=== PATIENT | female | born 1980 | race Caucasian/White ===

== ENCOUNTER 2018-04-05 12:51 | Emergency (ER) | payer BC ==
[2018-04-05] MEDS ORDERED: Metoclopramide IV* 5 MG/ML 2 ML VIAL IV ONE (14:22)
[2018-04-05] MEDS ORDERED: NS 0.9% 1000 ML* 1,000 ML IV ONE (14:22)
[2018-04-05] MEDS ORDERED: Morphine INJ* 10 MG/ML 1 ML CARPUJECT IV ONE (14:22)
[2018-04-05] MEDS ORDERED: Morphine VIAL* 10 MG/ML 1 ML VIAL ONE (14:31)
--- NOTE | 2018-04-05 14:31 | ED ---
Abdominal Pain/Female - HPI Summary HPI Summary: This is orilatonia Quintana Valdo documenting for attending Dr. Alcon Boothe MD. The patient is a 37 y/o F presenting to [facility] c/o intermittent aching RLQ pain starting this morning. The pain started in her right lower back and has moved to the RLQ. She went to work where the pain started to worsen, causing her to lie on the floor because of the pain, which she rated 9/10 in severity. She treated the pain with Advil to some relief. She was driven to the hospital by a friend, and the pain returned, so she took an additional Advil to decreased the pain to 2/10 in severity. She additionally c/o decreased appetite , chills, and diaphoresis. She denies nausea and vomiting. She last had breakfast at 09:00. LNMP: 03/17/18. FHx of kdieny stones in father but she has never had them. - History of Current Complaint Chief Complaint: EDFlankPain Stated Complaint: RT FLANK PAIN Time Seen by Provider: 04/05/18 14:02 Hx Obtained From: Patient Onset/Duration: Sudden Onset, Lasting Hours, Still Present Timing: Intermittent Episode Lasting Severity Initially: Mild Severity Currently: Moderate Pain Intensity: 7 Pain Scale Used: 0-10 Numeric Location: Discrete At: RLQ Character: Other: - aching Aggravating Factor(s): Nothing Alleviating Factor(s): Other: - Advil Associated Signs and Symptoms: Positive: Diaphoresis, Back Pain, Decreased Appetite, Other: - chills. Negative: Urinary Symptoms - hematuria, Nausea, Vomiting Allergies/Adverse Reactions: Allergies Allergy/AdvReac Type Severity Reaction Status Date / Time Penicillins Allergy Hives Verified 04/05/18 14:50 Home Medications: Home Medications Citalopram Hydrobromide [Citalopram HBr] 30 mg PO DAILY 04/05/18 [History Confirmed 04/05/18] PMH/Surg Hx/FS Hx/Imm Hx History: Denies: Hx Kidney Stones Psychiatric History: Reports: Hx Depression Infectious Disease History: No Infectious Disease History: Denies: Traveled Outside the [place] in Last 30 Days - Family History Known Family History: Positive: Other - kidney stones in father Review of Systems Positive: Chills, Skin Diaphoresis Positive: Abdominal Pain - RLQ, Other - decreased appetite. Negative: Vomiting , Nausea Negative: hematuria All Other Systems Reviewed And Are Negative: Yes Physical Exam - Summary Physical Exam Summary: GENERAL: Patient is a well developed and nourished female who is lying comfortable in the stretcher. Patient is not in any acute respiratory distress. HEAD AND FACE: Normocephalic EYES: PERRLA, EOMI x 2. EARS: Hearing grossly intact. MOUTH: Oropharynx within normal limits. NECK: Supple, trachea is midline, no adenopathy, no JVD, no carotid bruit. CHEST: Symmetric, no tenderness at palpation LUNGS: Clear to auscultation bilaterally. No wheezing or crackles. CVS: Regular rate and rhythm, S1 and S2 present, no murmurs or gallops appreciated. ABDOMEN: Soft. Tender in the RLQ without rebound or guarding. Bowel sounds are normal. No abdominal abnormal pulsations. EXTREMITIES: Full ROM in all major joints, no edema, no cyanosis or clubbing. NEURO: Alert and oriented x 3. No acute neurological deficits. Speech is normal and follows commands. SKIN: Dry and warm Triage Information Reviewed: Yes Vital Signs On Initial Exam: Initial Vitals Temp Pulse Resp BP Pulse Ox 97.0 F 80 16 170/100 100 04/05/18 12:52 04/05/18 12:52 04/05/18 12:52 04/05/18 12:52 04/05/18 12:52 Vital Signs Reviewed: Yes Diagnostics - Vital Signs Vital Signs Temp Pulse Resp BP Pulse Ox 04/05/18 12:52 97.0 F 80 16 170/100 100 - Laboratory Result Diagrams: 04/05/18 14:46 04/05/18 14:46 Lab Statement: Any lab studies that have been ordered have been reviewed, and results considered in the medical decision making process. - CT CT Abd/Pel CT Interpretation: Positive (See Comments) - 1. Mild RIGHT hydronephrosis appears secondary to a 2 mm stone at the ureteropelvic junction. No additional urolithiasis visualized however presence of IV contrast limits sensitivity. 2. No pathologic process of the alimentary tract evident. Normal appendix documented. 3. Suggestion of a 2 cm follicular or hemorrhagic cyst of the RIGHT ovary. 4. Physiologic small volume of free fluid in the dependent pelvis. ED physician has reviewed this report. CT Interpretation Completed By: Radiologist Re-Evaluation - Re-Evaluation First Eval Re-Evaluation Time: 16:35 Change: Unchanged Comment: I spoke with the pt about CT Abd/Pel results of kidney stones. Pt will be discharged home with follow up with urology. She is agreeable with this plan. Abdominal Pain Fem Course/Dx - Course Course Of Treatment: The patient is a 37 y/o F presenting to [facility] c/o intermittent aching RLQ pain starting this morning. The pain was initially rated 9/10 in severity, but has been relieved by treatment with Advil 2x to be rated 2/10 in severity. She additionally c/o chills, diaphoresis, and decreased appetite. She denies nausea, vomiting, and hematuria. She last ate at 09:00 this morning. LNMP: 03/18/18. FHx of kidney stones. Medications reviewed. Allergies noted. In the ED course, the pt was administered IV Ns 0.9% 1000mls @ 1000mls/hr, IV Omnipaque Contrast 88ml, IV Reglan 10mg, IV Morphine 4mg 2x. Bloodwork shows increased WBC and decreased lymphocytes. UA shows protein, ketones, blood, RBC, squamous epithelial cells, and ascorbic acid. CT Abd/Pel reveals hydronephrosis and kidney stone. Pt is diagnosed with kidney stones. She will be discharged home with a follow up with urology in 2-3 days and prescription for Ibuprofen, Zofran, Percocet, and Flomax. Return precautions discussed. Pt is agreeable with this plan. - Diagnoses Provider Diagnoses: Kidney stones Discharge - Sign-Out/Discharge Documenting (check all that apply): Patient Departure - Pt will be discharged home. - Discharge Plan Condition: Stable Disposition: HOME Prescriptions: Ibuprofen 800 mg PO TID #20 tablet Ondansetron [Zofran Odt] 4 mg PO TID #12 tab.rapdis oxyCODONE/Acetamin 5/325 MG* [Percocet 5/325 TAB*] 1 tab PO Q6H PRN #12 tab MDD 4 PRN Reason: Pain Tamsulosin HCl [Flomax] 0.4 mg PO DAILY #30 cap.er.24h Patient Education Materials: Kidney Stones (ED) Referrals: Melanie Alicia NP [Primary Care Provider] - Good Mayers MD [Medical Doctor] - 2 Days Additional Instructions: Please take medications as prescribed. Follow up with Dr. Mayers, urology, in 2-3 days. Return to the emergency department for any new or worsening symptoms. - Billing Disposition and Condition Condition: STABLE Disposition: Home
[2018-04-05] MEDS ORDERED: Morphine VIAL* 10 MG/ML 1 ML VIAL IV ONE (14:44)
[2018-04-05 14:53] LABS: ABS Basophils 0.1 10^3/ul (0-0.2); ABS Eosinophils 0.3 10^3/ul (0-0.6); ABS Lymphocytes 1.1 10^3/ul (1.0-4.8); ABS Monocytes 0.6 10^3/ul (0-0.8); ABS Neutrophils 9.6 10^3/ul (1.5-7.7); ABS Nucleated RBC 0 10^3/ul; Eosinophil % 2.8 % (0-6); Hematocrit 36 % (35-47); Hemoglobin 11.8 g/dl (12.0-16.0); Lymphocyte % 9.6 % (25-47); Mean Corpuscular HGB Conc 33 g/dl (31-36); Mean Corpuscular Hemoglobin 27 pg (27-31); Mean Corpuscular Volume 82 fL (80-97); Mean Platelet Volume 7.9 um3 (7.4-10.4); Nucleated Red Blood Cells % 0; Platelet Count 296 10^3/ul (150-450); Red Blood Count 4.38 10^6/ul (4.00-5.40); Red Cell Distribution Width 16 % (10.5-15); White Blood Count 11.7 10^3/ul (3.5-10.8)
[2018-04-05 14:57] LABS: Urine Appearance Clear; Urine Blood 2+ (Negative); Urine Color Yellow; Urine Ketones Trace (Negative); Urine Protein 1+(30 mg/dL) (Negative); Urine Red Blood Cell 3+(>10/hpf) (Absent); Urine Specific Gravity 1.023 (1.010-1.030); Urine Urobilinogen Negative (Negative); Urine White Blood Cell Trace(0-5/hpf) (Absent)
[2018-04-05 15:10] LABS: EGFR Non-African American 96.3 (>60)
[2018-04-05] MEDS ORDERED: Iohexol 300* (CONTRAST) 10 ML SDV IV ONE (15:21)
--- NOTE | 2018-04-05 16:12 | RAD ---
INDICATION: RIGHT lower quadrant pain. Clinical differential includes appendicitis and urolithiasis. History of ovarian cysts. COMPARISON: No relevant prior exams available on the [facility] PACS for comparison. TECHNIQUE: Multidetector CT images were obtained from the lung bases to the ischial tuberosities with 88 mL Omnipaque 300 IV and oral contrast. Multiplanar reformation. REPORT: Unremarkable visualized inferior thorax. The liver, gallbladder, pancreas, and spleen are unremarkable. No CT abnormality of the upper GI, small bowel, diminutive infra cecal appendix, and colon. Physiologic volume of free fluid in the dependent pelvis. Negative for free air or hernias. Normal adrenal glands. Symmetric nephrograms and pyelograms. Mild RIGHT hydronephrosis appears secondary to a 2 mm stone at the ureteropelvic junction. The ureters are otherwise unremarkable. Phlebolith noted adjacent to the distal LEFT ureter. Unremarkable incompletely distended urinary bladder. Unremarkable anteverted uterus and LEFT adnexal region. Mildly enlarged RIGHT ovary with suggestion of a 2 cm follicular or hemorrhagic cyst. Negative for lymphadenopathy. Unremarkable abdominal aorta and iliac arteries. Physiologic distention of the IVC. Healed fracture of the RIGHT inferior pubic ramus. Negative for suspicious osseous lesions. IMPRESSION: #. Mild RIGHT hydronephrosis appears secondary to a 2 mm stone at the ureteropelvic junction. No additional urolithiasis visualized however presence of IV contrast limits sensitivity. #. No pathologic process of the alimentary tract evident. Normal appendix documented. #. Suggestion of a 2 cm follicular or hemorrhagic cyst of the RIGHT ovary. #. Physiologic small volume of free fluid in the dependent pelvis.
[2018-04-05] MEDS ORDERED: oxyCODONE/Acetamin 5/325 MG* TAB PO ONE (17:16)
[2018-04-05] MEDS ORDERED: Ondansetron ODT TAB* 4 MG PO ONE (17:16)
[2018-04-05 17:47] VITALS: BP 126/80
== END 2018-04-05 17:46 | disposition home or self-care (01) ==
LOC: ED 12:51
DX: N13.2 Hydronephrosis with renal and ureteral calculous obstruction (principal); R68.83 Chills (without fever); R61 Generalized hyperhidrosis; F32.9 Major depressive disorder, single episode, unspecified; Z88.0 Allergy status to penicillin; Z84.1 Family history of disorders of kidney and ureter
CPT/HCPCS: 36415; 74177; 80053; 81003; 81015; 83605; 83690; 83735; 84702; 85025; 85730; 86140; 87086; 96374; 96375; 99283; A9270-GY; J2270; J2765; Q9967